=== PATIENT | male | born 1965 | race Caucasian/White ===

== ENCOUNTER 2025-03-16 17:18 | Emergency (ER) | payer OTHER ==
[~2025-03-16] VITALS: Ht 172.7 cm; Wt 90.0 kg
[2025-03-16 17:33] VITALS: O2SAT 95
[2025-03-16 18:08] VITALS: TEMP 37.3
[2025-03-16 18:59] LABS: BASOPHILS % 0.7 % (0.0-2.0); EOSINOPHILS % 4.0 % (0.0-5.0); HEMATOCRIT. 43.4 % (42.0-52.0); HEMOGLOBIN. 14.5 g/dL (14.0-18.0); LYMPHOCYTES % 19.0 % (20.0-50.0); MEAN PLATELET VOLUME 10.6 fl (7.4-10.4); MONOCYTES % 6.4 % (2.0-8.0); NEUTROPHILS % 69.9 % (40.0-76.0); PLATELET 134 x1000/uL (130-400); RED BLOOD CELL COUNT 5.36 mill/uL (4.7-6.1); RED CELL DISTRIBUTION WIDTH 15.0 % (11.6-14.6)
[2025-03-16 19:04] VITALS: TEMP 99.1
[2025-03-16 19:11] LABS: CREATININE 0.9 mg/dL (0.6-1.3)
[2025-03-16 19:12] LABS: PROTEIN TOTAL 5.6 g/dL (6.0-8.3); UREA NITROGEN BLOOD 15 mg/dL (9-23)
[2025-03-16 19:13] LABS: ASPARTATE AMINOTRANSFERASE 18 IU/L (<34); TROPONIN I HIGH SENSITIVITY 8 ng/L (3.0-53)
[2025-03-16 19:14] LABS: BILIRUBIN DIRECT 0.1 mg/dL (<=3.0); BILIRUBIN TOTAL 0.4 mg/dL (0.1-1.0); PHOSPHORUS 2.4 mg/dL (2.5-4.9)
[2025-03-16 19:16] LABS: T4 FREE 1.34 ng/dL (0.89-1.76)
[2025-03-16 20:26] VITALS: BP 139/84; PULSE 96; RESP 17; O2SAT 97
== END 2025-03-16 20:35 | disposition home or self-care (01) ==
LOC: ER 17:18 → CMPBEDREQ 21:01
DX: R53.1 Weakness (principal); R06.02 Shortness of breath; T45.1X5A Adverse effect of antineoplastic and immunosuppressive drugs, initial encounter; Z85.72 Personal history of non-Hodgkin lymphomas; Z88.5 Allergy status to narcotic agent; Y92.89 Other specified places as the place of occurrence of the external cause
CPT/HCPCS: 36415; 71045; 80048; 80076; 82550; 83735; 83880; 84100; 84439; 84443; 84484; 84550; 85025; 93005; 99285